=== PATIENT | male | born 1985 | race Caucasian/White ===

== ENCOUNTER 2018-05-09 10:28 | Emergency (ER) | payer SELFPAY ==
[~2018-05-09] VITALS: Ht 190.5 cm; Wt 97.5 kg
[2018-05-09 11:17] VITALS: BP 123/81
[2018-05-09] MEDS ORDERED: AZIT1PAC9 PO (11:38)
--- NOTE | 2018-05-09 11:38 | PHYS DOC ---
Past Medical History Past Medical History: Anxiety, Depression Additional Past Medical Histor: ADHD Past Surgical History: No Surgical History Alcohol Use: Occasionally Drug Use: None Adult General Chief Complaint Chief Complaint: COUGH HPI HPI Patient is a 33 year old with a productive cough with yellow sputum production x 1 week. Pateitn staets he gets chils and a headache intermittently. Patient states he has been taking DayQuil and NyQuil along with Mucinex. Review of Systems Review of Systems Constitutional: Denies fever. Chills Present [] Eyes: Denies change in visual acuity, redness, or eye pain [] HENT: Denies nasal congestion or sore throat [] Respiratory: Productive cough. Denies shortness of breath [] Cardiovascular: No additional information not addressed in HPI [] GI: Denies abdominal pain, nausea, vomiting, bloody stools or diarrhea [] : Denies dysuria or hematuria [] Musculoskeletal: Denies back pain or joint pain [] Integument: Denies rash or skin lesions [] Neurologic: Denies headache, focal weakness or sensory changes [] All other systems were reviewed and found to be within normal limits, except as documented in this note. Current Medications Current Medications Current Medications Medications (Trade) Dose Ordered Sig/Sravanthi Start Time Stop Time Status Last Admin Dose Admin Dexamethasone (Decadron) 4 mg 1X ONCE 05/09/18 11:45 05/09/18 11:46 DC 05/09/18 11:44 4 MG Allergies Allergies Allergies Coded Allergies Type Severity Reaction Last Updated Verified No Known Drug Allergies 05/09/18 No Physical Exam Physical Exam Constitutional: Well developed, well nourished, no acute distress, non-toxic appearance. [] HENT: Normocephalic, atraumatic, bilateral external ears normal, oropharynx moist, no oral exudates, nose normal. [] Eyes: PERRLA, EOMI, conjunctiva normal, no discharge. [] Neck: Normal range of motion, no tenderness, supple, no stridor. [] Cardiovascular:Heart rate regular rhythm, no murmur [] Lungs & Thorax: Bilateral breath sounds clear to auscultation [] Abdomen: Bowel sounds normal, soft, no tenderness, no masses, no pulsatile masses. [] Skin: Warm, dry, no erythema, no rash. [] Back: No tenderness, no CVA tenderness. [] Extremities: No tenderness, no cyanosis, no clubbing, ROM intact, no edema. [] Neurologic: Alert and oriented X 3, normal motor function, normal sensory function, no focal deficits noted. [] Psychologic: Affect normal, judgement normal, mood normal. [] Current Patient Data Vital Signs Vital Signs Date Time Temp Pulse Resp B/P (MAP) Pulse Ox O2 Delivery O2 Flow Rate FiO2 05/09/18 11:17 98.5 86 16 123/81 (95) 97 Room Air 98.5 EKG EKG [] Radiology/Procedures Radiology/Procedures chest x ray[] Impressions: [facility] [address] [place] [address] IMAGING REPORT Signed PATIENT: CESARIO CHANDRA ACCOUNT: [id number] : 1985 LOCATION: ER AGE: 33 SEX: M EXAM STATUS: REG ER ORD. PHYSICIAN: JOSE DAVISON APRN REASON: cough PROCEDURE: CHEST PA & LATERAL EXAM: CHEST PA LATERAL DATE: 05/09/2018 11:32 AM INDICATION: COUGH X 2 WEEKS COMPARISON: No Prior FINDINGS: The heart is not enlarged. Mediastinal and hilar contours are normal. No focal parenchymal airspace opacity. No pleural effusion or pneumothorax. IMPRESSION: 1. No radiographic evidence for acute cardiopulmonary process. Electronically signed by: Morgan Jackson MD (05/09/2018 12:12 PM) [id number] DICTATED and SIGNED BY: MORGAN JACKSON MD DATE: 05/09/18 1212 Course & Med Decision Making Course & Med Decision Making Upon examination patient has no respiratory distress, soa, chest pain, nausea, vomiting, or fever. Patients lungs are clear to auscultation. Throat is pink without exudates. Bilateral tympanic membranes are pearly white. Patient denies nasal congestion. Chest x ray shows no acute findings. Patient to continue taking OTC cold medication, is given a dose of Decadron in the ED, and sent home with Azithromycin. Patient to follow up with primary care if needed. [] Dragon Disclaimer Dragon Disclaimer This electronic medical record was generated, in whole or in part, using a voice recognition dictation system. Departure Departure Impression: Primary Impression: Upper respiratory infection Additional Impression: Cough Disposition: HOME, SELF-CARE Condition: STABLE Referrals: NO PCP (PCP) Patient Instructions: Upper Respiratory Infection, Adult Additional Instructions: Follow up with Primary Care. Take all medications as prescribed. Scripts Azithromycin (AZITHROMYCIN TABLET) 250 Mg Tablet 1 PKG PO UD, #6 TAB Prov: JOSE DAVISON APRN 05/09/18 Problem Qualifiers Primary Impression: Upper respiratory infection URI type: unspecified URI Qualified Codes: J06.9 - Acute upper respiratory infection, unspecified JOSE DAVISON APRN May 09, 2018 11:38
[2018-05-09] MEDS ORDERED: DEXAMETHASONE 4 MG TABLET PO ONE (11:45)
--- NOTE | 2018-05-09 12:16 | RAD ---
EXAM: CHEST PA LATERAL DATE: 05/09/2018 11:32 AM INDICATION: COUGH X 2 WEEKS COMPARISON: No Prior FINDINGS: The heart is not enlarged. Mediastinal and hilar contours are normal. No focal parenchymal airspace opacity. No pleural effusion or pneumothorax. IMPRESSION: 1. No radiographic evidence for acute cardiopulmonary process. Electronically signed by: Morgan Jackson MD (05/09/2018 12:12 PM) [id number]
[2018-05-09] MEDS ORDERED: AZIT250T6 PO (12:35)
== END 2018-05-09 12:37 | disposition home or self-care (01) ==
LOC: ER 10:28
DX: J06.9 Acute upper respiratory infection, unspecified (principal); R51 Headache; F41.9 Anxiety disorder, unspecified; F32.9 Major depressive disorder, single episode, unspecified; F90.9 Attention-deficit hyperactivity disorder, unspecified type
CPT/HCPCS: 71046; 99284; J8540